=== PATIENT | female | born 1990 | race African-American/Black ===

== ENCOUNTER 2022-09-08 23:38 | Emergency (ER) | payer OTHER ==
[~2022-09-08] VITALS: Ht 180.3 cm; Wt 95.5 kg
[2022-09-09] MEDS ORDERED: ISOVUE-370 76% 100ML VIAL As Ordered ONE (03:48)
[2022-09-09] MEDS ORDERED: ONDANSETRON 4MG 2ML VIAL IV ONE (04:10)
[2022-09-09] MEDS ORDERED: MORPHINE 4 MG/ML 1ML VIAL/SYRINGE IV ONE (04:10)
[2022-09-09 05:00] VITALS: BP 134/86
[2022-09-09] MEDS ORDERED: ONDA4TAB6 PO (06:20)
[2022-09-09] MEDS ORDERED: TRAM50TA2 PO (06:20)
[2022-09-09] MEDS ORDERED: COLA100C5 PO (06:20)
== END 2022-09-09 06:39 | disposition home or self-care (01) ==
LOC: M ED 23:38
DX: K59.00 Constipation, unspecified (principal); R10.811 Right upper quadrant abdominal tenderness; R10.813 Right lower quadrant abdominal tenderness; R11.10 Vomiting, unspecified; I10 Essential (primary) hypertension; F32.A Depression, unspecified; Z87.42 Personal history of other diseases of the female genital tract; Z88.0 Allergy status to penicillin; Z88.2 Allergy status to sulfonamides; Z91.013 Allergy to seafood; F17.200 Nicotine dependence, unspecified, uncomplicated
CPT/HCPCS: 74177; 96374; 96375; 99284; J2270; J2405

== ENCOUNTER → 2025-01-17 | Outpatient (REF) | payer OTHER ==
[~2025-01-17] MED LIST: COLA100C5 PO; ONDA-282 PO; TRAM50TA2 PO
== END ==
LOC: M CFLAB 14:46
DX: Z12.4 Encounter for screening for malignant neoplasm of cervix (principal)